=== PATIENT | female | born 1990 | race Two or more races ===

== ENCOUNTER 2018-03-17 14:18 | Emergency (ER) | payer BC, OTHER ==
[2018-03-17 14:30] VITALS: BP 127/85; PULSE 87; TEMP 98.6
--- NOTE | 2018-03-17 14:32 | PDOC ---
Rapid Medical Evaluation Time Seen by Provider: 03/17/18 14:24 Medical Evaluation: 03/17/18 14:25 Pt presents to the ED for a bulge coming out her abdominal region. States that the bulge feels like a burning pain. Also admits to bloating. Family hx of ovarian cancer. Exam: Pain to the R adenxal area Orders: labs, urine Pt to proceed to the ED for further evaluation Discharge Disposition - Diagnosis Abdominal pain - Referrals - Patient Instructions - Post Discharge Activity
[2018-03-17 15:28] LABS: BASO % 0.5 % (0-2.0); EOS % 0.6 % (0-4.5); HEMATOCRIT 44.9 % (32.4-45.2); HEMOGLOBIN 14.5 GM/dL (10.7-15.3); LYMPH % 21.1 % (8-40); MCH 27.7 pg (25.7-33.7); MCHC 32.2 g/dl (32.0-36.0); MEAN CELL VOLUME 86.2 fl (80-96); MEAN PLT VOLUME 9.1 fl (7.5-11.1); MONO % 5.7 % (3.8-10.2); NEUT % 72.1 % (42.8-82.8); PLATELET COUNT 303 K/MM3 (134-434); RBC 5.21 M/mm3 (3.60-5.2); WHITE BLOOD COUNT 12.3 K/mm3 (4.0-10.0)
[2018-03-17 15:34] LABS: URINE APPEARANCE CLEAR; URINE BILIRUBIN NEGATIVE (<2.0 mg/dL); URINE COLOR STRAW; URINE GLUCOSE (UA) NEGATIVE (NEGATIVE); URINE KETONE NEGATIVE (NEGATIVE); URINE LEUK ESTERASE NEGATIVE (NEGATIVE); URINE NITRITE NEGATIVE (NEGATIVE); URINE PROTEIN NEGATIVE (NEGATIVE); URINE UROBILINOGEN NEGATIVE mg/dL (0.2-1.0)
[2018-03-17 15:36] LABS: HCG,QUALITATIVE URINE Negative
[2018-03-17 15:38] LABS: EPI CELLS RARE /HPF (FEW)
--- NOTE | 2018-03-17 15:39 | PDOC ---
History of Present Illness - General Chief Complaint: Pain Stated Complaint: ABD PAIN Time Seen by Provider: 03/17/18 14:24 - History of Present Illness Initial Comments: 28 yo F with no sig pmh is here with RLQ nagging abdominal pain rated 4/10 which does not radiate. She states that she noticed a bulge in her RLQ this morning while she was showering. She endorses mild nausea but no emesis. She is currently on her menstrul period, which started 2 days prior. She denies any recent fevers, chills, infections, diarrhea, constipation, back pain, dysuria, frequency, or urgency. Allergies: NKA, NKDA PCP: None Social Hx: Denies smoking, alcohol, or illicit drug usage. Past History - Past Medical History Allergies/Adverse Reactions: Allergies Allergy/AdvReac Type Severity Reaction Status Date / Time No Known Allergies Allergy Verified 03/17/18 14:25 COPD: No - Immunization History Immunization Up to Date: Yes - Suicide/Smoking/Psychosocial Hx Smoking History: Never smoked Number of Cigarettes Smoked Daily: 10 Information on smoking cessation initiated: No Review of Systems - Review of Systems Comments:: CONSTITUTIONAL: Absent: fever, no chills, no fatigue EYES: Absent: visual changes ENT: Absent: ear pain, no sore throat CARDIOVASCULAR: Absent: chest pain, no palpitations RESPIRATORY: Absent: cough, no SOB GI: Present: Abdominal pain, nausea Absent: no vomiting, no constipation, no diarrhea GENITOURINARY: Absent: dysuria, no frequency, no hematuria MUSKULOSKELETAL: Absent: back pain, no arthralgia, no myalgia SKIN: Absent: rash NEURO: Absent: headache *Physical Exam - Vital Signs Last Vital Signs Temp Pulse Resp BP Pulse Ox 98.6 F 87 18 127/85 99 03/17/18 14:25 03/17/18 14:25 03/17/18 14:25 03/17/18 14:25 03/17/18 14:25 - Physical Exam Comments: PELVIC: No abnormal discharge notes. No CMT. No adnexal TTP. GENERAL: Well-appearing, well-nourished. No apparent distress. HEENT: Normocephalic, atraumatic. PERRL, EOM intact. CARDIOVASCULAR: Normal S1, S2. Regular rate and rhythm. PULMONARY: Clear to auscultation bilaterally. ABDOMEN: There is a small bulge in the RLQ, worse when the patient stands. Mild RLQ TTP. EXTREMITIES: Normal ROM in all four extremities. No gross deformities. SKIN: Warm, dry. No rash NEUROLOGICAL: No focal neurological deficits. ED Treatment Course - LABORATORY CBC & Chemistry Diagram: 03/17/18 15:18 03/17/18 15:18 - ADDITIONAL ORDERS Additional order review: Laboratory Results 03/17/18 15:18 Urine Color Straw Urine Appearance Clear Urine pH 6.0 Ur Specific [place] 1.006 L Urine Protein Negative Urine Glucose (UA) Negative Urine Ketones Negative Urine Blood 2+ H Urine Nitrite Negative Urine Bilirubin Negative Urine Urobilinogen Negative Ur Leukocyte Esterase Negative Urine HCG, Qual Negative - RADIOLOGY Radiology Studies Ordered: Category Date Time Status TRANSVAGINAL ULTRASOUND US [US] Stat Ultrasound 03/17/18 15:14 Ordered Medical Decision Making - Medical Decision Making 28 yo F with no sig pmh is here with RLQ nagging abdominal pain rated 4/10 which does not radiate. She states that she noticed a bulge in her RLQ this morning while she was showering. DD includes but not limited to: Abdominal hernia, UTI, Renal colic, Appendicitis , ovarian cyst, other ovarian disease. Plan: Basic Labs, re-assess. Patient appears very well. No pain noted on re-assessment. Pelvic exam negative. This is likely an abdominal Hernia. We will DC patient with surgical FU. *DC/Admit/Observation/Transfer Diagnosis at time of Disposition: Abdominal pain, Hernia of abdominal wall - Discharge Dispostion Disposition: HOME Condition at time of disposition: Stable Decision to Admit order: No - Referrals Referrals: Carolee Paul MD [Staff Physician] - - Patient Instructions Printed Discharge Instructions: DI for Groin Hernia, Diaphragmatic Hernia, Abdominal Hernia, Umbilical Hernia-Child, DI for Ventral Hernia Additional Instructions: You came into the ER with abdominal pain. We determined you have an abdominal hernia. It is important for you to schedule an appointment with a surgeon in the next 7 to 10 days to make sure your hernia will be taken care of. We are referring you to the [facility]. Please call them up at your earliest convenience. Come back to the ER if your pain worsens, you get a high fever, or have any other new or worsening concerns. Thank you for coming to the [facility] ER. We hope you feel better soon! Print Language: TURKISH - Post Discharge Activity
[2018-03-17 16:13] LABS: ALBUMIN 4.6 g/dl (3.4-5.0); ALK PHOS 52 U/L (45-117); ANION GAP 8 MMOL/L (8-16); BILIRUBIN,TOTAL 0.4 mg/dL (0.2-1); BLOOD UREA NITROGEN 11 mg/dL (7-18); CHLORIDE 106 mmol/L (98-107); CO2 24 mmol/L (21-32); CREATININE 0.6 mg/dL (0.55-1.3); GLUCOSE,RANDOM 86 mg/dL (74-106); POTASSIUM 4.3 mmol/L (3.5-5.1); SGOT/AST 22 U/L (15-37); SGPT/ALT 19 U/L (13-61); SODIUM 137 mmol/L (136-145)
== END 2018-03-17 15:46 | disposition home or self-care (01) ==
LOC: JER 14:18
DX: K43.9 Ventral hernia without obstruction or gangrene (principal)
CPT/HCPCS: 36415; 80053; 81003; 81015; 84703; 85025; 87086; 99282-25